=== PATIENT | female | born 1960 | race Two or more races ===

== ENCOUNTER 2025-02-04 12:41 | Emergency (ER) | payer OTHER ==
[~2025-02-04] VITALS: Ht 160 cm; Wt 83.9 kg
[2025-02-04] MEDS ORDERED: ENBREL25 MG/0.5 SQ (12:48)
[2025-02-04] MEDS ORDERED: NAPROSYN125 MG/5 M (12:48)
[2025-02-04] MEDS ORDERED: METHYLPREDNISOLONE SOD SUCC 125 MG VIAL IM STA (14:48)
[2025-02-04] MEDS ORDERED: DIPHENHYDRAMINE HCL 50 MG/ML VIAL 1ML IM STA (14:48)
== END 2025-02-04 15:02 | disposition home or self-care (01) ==
LOC: ER 12:41
DX: L50.8 Other urticaria (principal)
CPT/HCPCS: 96372; 99282; J1200